=== PATIENT | female | born 1980 | race Two or more races ===

== ENCOUNTER 2019-03-22 07:05 | Emergency (ER) | payer BC, OTHER ==
[~2019-03-22] VITALS: Ht 167.6 cm; Wt 128.8 kg
[2019-03-22 07:41] LABS: Urine WBC None Seen /hpf (0 - 5)
[2019-03-22 07:45] LABS: Basophils # (auto) 0 uL; Basophils % (auto) 0.6 % (0.0-2.0); Eosinophils # (auto) 0.1 uL; Eosinophils % (auto) 1.4 % (0.0-7.0); Hematocrit 37.1 % (36.0-46.0); Hemoglobin 12.2 g/dL (12.2-16.2); Lymphocytes # (auto) 2.6 uL; Lymphocytes % (auto) 40.7 % (10.0-50.0); Mean Corpuscular Hemoglobin 28.2 pg (28.0-32.0); Mean Corpuscular Hgb Conc. 32.8 g/dL (32.0-36.0); Mean Corpuscular Volume 85.8 fL (80.0-100.0); Monocytes # (auto) 0.5 uL; Monocytes % (auto) 8.8 % (0.0-12.0); Neutrophils % (auto) 48.5 % (37.0-80.0); Nucleated Red Blood Cells % 0.1 %; Platelet Count (auto) 280 10^3/uL (140-450); Red Blood Cells 4.33 10^6/uL (4.0-5.20); Red Cell Distribution Width 16.8 % (11.8-14.3); White Blood Cell 6.3 10^3/uL (4.4-10.8)
[2019-03-22 08:01] LABS: Urine Bacteria FEW /hpf (None Seen); Urine Blood Negative /uL (Negative); Urine Mucus FEW (None Seen); Urine Specific Gravity 1.013 (1.001-1.035)
[2019-03-22 08:02] LABS: Albumin 3.1 g/dL (3.4-5.0); BUN/Creatinine Ratio 16.4; Potassium 4.1 mmol/L (3.5-5.1)
[2019-03-22 08:05] LABS: Bilirubin, Total 0.2 mg/dL (0.2-1.0)
[2019-03-22 09:38] LABS: INR 0.93 (0.9-1.15); Partial Thromboplastin Time 28.1 sec (23.64-32.05)
[2019-03-22 12:16] VITALS: BP 130/82
== END 2019-03-22 12:34 | disposition home or self-care (01) ==
LOC: ER 07:11
DX: K64.9 Unspecified hemorrhoids (principal); R10.32 Left lower quadrant pain; R11.0 Nausea
CPT/HCPCS: 36415; 74018; 74176; 80053; 81001; 81025; 83690; 85025; 85610; 85730; 93005